=== PATIENT | female | born 1990 | race Caucasian/White ===

== ENCOUNTER 2018-08-14 10:12 | Emergency (ER) | payer OTHER ==
[2018-08-14] VITALS (9 sets, daily range): BP systolic 107–126; BP diastolic 45–63
[~2018-08-14] VITALS: Ht 162.6 cm; Wt 66.0 kg
[2018-08-14 11:33] LABS: MEAN CORPUSCULAR HEMOGLOBIN 18.2 pg (27.0-34.8); MEAN CORPUSCULAR VOLUME 63.2 fL (80-100); MEAN PLATELET VOLUME 10.1 fL (7.4-10.4); PLATELET COUNT 328 x10^3/uL (130-400); RED BLOOD COUNT 2.57 x10^6/uL (3.82-5.3); RED CELL DISTRIBUTION WIDTH 21.7 % (9.6-15.2)
[2018-08-14 11:34] LABS: MEAN CORPUSCULAR HGB CONC 28.7 g/dL (32.4-35.8)
[2018-08-14 11:45] LABS: BASOPHILS # (AUTO) 0.06 x10^3/uL (0-0.1); BASOPHILS % (AUTO) 2 % (0-1); EOSINOPHILS % (AUTO) 3 % (1-7); LYMPHOCYTES # (AUTO) 1.06 x10^3/uL (1-3.4); LYMPHOCYTES % (AUTO) 29 % (22-44); MD MORPH REVIEW ONLY; MONOCYTES # (AUTO) 0.32 x10^3/uL (0.2-0.8); MONOCYTES % (AUTO) 9 % (2-9); NEUTROPHILS # (AUTO) 2.17 x10^3/uL (1.8-6.8); NEUTROPHILS % (AUTO) 58 % (42-75)
[2018-08-14 11:54] LABS: ANISOCYTOSIS 2+; HYPOCHROMIA 3+; MICROCYTOSIS 2+
[2018-08-14 11:55] LABS: <PLATELET ESTIMATE> ADEQUATE; <PLT MORPHOLOGY> NORMAL PLT MORPH; OVALOCYTES 1+; POLYCHROMASIA 1+
[2018-08-14] MEDS ORDERED: MEGESTROL 40MG TABLET PO ONE (13:00)
== END 2018-08-14 16:21 | disposition home or self-care (01) ==
LOC: ED 11:25
DX: N93.8 Other specified abnormal uterine and vaginal bleeding (principal); D25.9 Leiomyoma of uterus, unspecified
CPT/HCPCS: 36415; 36430; 76830; 84703; 85025; 86850; 86900; 86920; 86923; 93005; 99285; P9016

== ENCOUNTER 2018-09-17 11:37 | Observation (INO) | payer OTHER ==
[~2018-09-17] VITALS: Ht 162.6 cm; Wt 65.7 kg
[2018-09-17] MEDS ORDERED: FENTANYL PF 250 MCG/5ML ONE ×3 (12:14→14:42)
[2018-09-17] MEDS ORDERED: MIDAZOLAM 1 MG/ML, 2ML ONE (12:14)
[2018-09-17] MEDS ORDERED: LACTATED RINGERS 1,000 ML IV SCH (12:30)
[2018-09-17 12:52] LABS: MEAN CORPUSCULAR HGB CONC 31.3 g/dL (32.4-35.8); MEAN CORPUSCULAR VOLUME 89.3 fL (80-100); MEAN PLATELET VOLUME 9.8 fL (7.4-10.4); PLATELET COUNT 355 x10^3/uL (130-400); RED BLOOD COUNT 3.51 x10^6/uL (3.82-5.3); RED CELL DISTRIBUTION WIDTH 27.3 % (9.6-15.2)
[2018-09-17] MEDS ORDERED: ACETAMINOPHEN 500 MG TABLET PO ONE (13:00)
[2018-09-17] MEDS ORDERED: GABAPENTIN 300 MG CAPSULE PO ONE (13:00)
[2018-09-17 13:01] VITALS: BP 115/71
[2018-09-17] MEDS ORDERED: BUPIVACAINE/PF-EPI 0.25% 1:200K ONE (13:09)
[2018-09-17] MEDS ORDERED: NEOMY/POLYMYXIN B GU IRR. 1 ML IRRIG ONE (13:09)
[2018-09-17] MEDS ORDERED: INDIGO CARMINE 0.8%, 5ML ONE (13:09)
[2018-09-17] MEDS ORDERED: MEGE625O PO (13:11)
[2018-09-17] MEDS ORDERED: DEXAMETHASONE 4 MG/ML, 1ML ONE (13:23)
[2018-09-17] MEDS ORDERED: CEFAZOLIN 1,000 MG ONE (13:23)
[2018-09-17] MEDS ORDERED: ONDANSETRON 2MG/ML, 2ML ONE (13:23)
[2018-09-17] MEDS ORDERED: PROPOFOL 10 MG/ML, 20ML ONE (13:23)
[2018-09-17] MEDS ORDERED: NEOSTIGMINE 1 MG/ML, 10ML ONE (13:23)
[2018-09-17] MEDS ORDERED: GLYCOPYRROLATE 0.2MG/1ML, 5ML ONE (13:23)
[2018-09-17 13:27] LABS: BASOPHILS # (AUTO) 0.04 x10^3/uL (0-0.1); BASOPHILS % (AUTO) 1 % (0-1); EOSINOPHILS # (AUTO) 0.08 x10^3/uL (0-0.4); EOSINOPHILS % (AUTO) 1 % (1-7); LYMPHOCYTES # (AUTO) 1.49 x10^3/uL (1-3.4); LYMPHOCYTES % (AUTO) 24 % (22-44); MD MORPH REVIEW ONLY; MONOCYTES # (AUTO) 0.39 x10^3/uL (0.2-0.8); MONOCYTES % (AUTO) 6 % (2-9); NEUTROPHILS # (AUTO) 4.15 x10^3/uL (1.8-6.8); NEUTROPHILS % (AUTO) 67 % (42-75)
[2018-09-17 13:28] LABS: <PLATELET ESTIMATE> ADEQUATE; LARGE PLATELETS 1+; POLYCHROMASIA 2+
[2018-09-17 13:29] LABS: ANISOCYTOSIS 2+; HYPOCHROMIA 1+; MICROCYTOSIS 1+
[2018-09-17] MEDS ORDERED: MORPHINE SULFATE 4 MG/ML, 1ML IVPush PRN (13:30)
[2018-09-17] MEDS ORDERED: PROMETHAZINE 25 MG/ML, 1ML IV PRN (13:30)
[2018-09-17] MEDS ORDERED: hydrALAzine 20 MG/ML, 1ML IV PRN (13:30)
[2018-09-17] MEDS ORDERED: PROMETHAZINE 25 MG/ML, 1ML IM PRN ×2 (13:30)
[2018-09-17] MEDS ORDERED: ONDANSETRON 2MG/ML, 2ML IV PRN (13:30)
[2018-09-17] MEDS ORDERED: MEPERIDINE/PF 25MG/0.5ML IVPush PRN (13:30)
[2018-09-17] MEDS ORDERED: LABETALOL 5MG/ML, 20ML IV PRN (13:30)
[2018-09-17] MEDS ORDERED: OXYcodone 5 MG/5 ML ORAL.SOL UDC PO PRN (13:30)
[2018-09-17] MEDS ORDERED: PROMETHAZINE 25 MG SUPP PR PRN (13:30)
[2018-09-17] MEDS ORDERED: PROMETHAZINE 12.5 MG SUPP PR PRN (13:30)
[2018-09-17] MEDS ORDERED: ONDANSETRON ODT 8 MG PO PRN (13:30)
[2018-09-17] MEDS ORDERED: SODIUM CHLORIDE 0.9% 100 ML ONE (13:41)
[2018-09-17] MEDS ORDERED: VASOPRESSIN 20 UNIT/ML, 1ML ONE (13:41)
[2018-09-17] MEDS ORDERED: METHYLENE BLUE 10 MG/ML 10ML ONE (14:53)
[2018-09-17] MEDS ORDERED: ROCURONIUM 10MG/ML,5ML ONE (15:35)
[2018-09-17] MEDS ORDERED: FENTANYL PF 100 MCG/2ML ONE ×3 (16:03→17:25)
[2018-09-17] MEDS: LACTATED RINGERS 1,000 ML IV SCH (17:21)
[2018-09-17] MEDS ORDERED: OXYcodone 5 MG/5 ML ORAL.SOL UDC ONE (17:25)
[2018-09-17] MEDS: FENTANYL PF 100 MCG/2ML IV PRN ×2 (17:26→17:33)
[2018-09-17] MEDS ORDERED: PROMETHAZINE 12.5 MG SUPP PR ONE (17:30)
[2018-09-17] MEDS ORDERED: ONDANSETRON 2MG/ML, 2ML IVPush PRN (17:30)
[2018-09-17] MEDS ORDERED: HYDROmorphone 2 MG/ML, 1ML ONE (17:33)
[2018-09-17] MEDS: HYDROmorphone 1 MG/ML, 1ML IV PRN ×2 (17:40→18:03)
[2018-09-17 19:30] VITALS: BP 113/68
[2018-09-17] MEDS ORDERED: PROMETHAZINE 25 MG SUPP PR ONE ×2 (21:29→21:30)
[2018-09-17] MEDS: IBUPROFEN 600 MG TABLET PO PRN (23:00)
[2018-09-17] MEDS: OXYcodone/APAP 5/325MG TABLET PO PRN (23:11)
[2018-09-18] VITALS (11 sets, daily range): BP systolic 100–113; BP diastolic 51–67
[2018-09-18] MEDS: IBUPROFEN 600 MG TABLET PO PRN ×2 (02:35→11:13)
[2018-09-18] MEDS: OXYcodone/APAP 5/325MG TABLET PO PRN ×5 (02:35→17:06)
[2018-09-18] MEDS: LACTATED RINGERS 1,000 ML IV SCH (02:45)
[2018-09-18 08:47] LABS: HEMOGRAM NOTE RECHECKED
[2018-09-18] MEDS ORDERED: OXYC1TAB7 PO (16:10)
[2018-09-18] MEDS ORDERED: HYDR-3240 PO (17:28)
== END 2018-09-18 17:58 | disposition home or self-care (01) ==
LOC: OUT 11:37 → 4NOR 18:30 → OUT 22:46
PROVIDERS: ADMIT Obstetrics & Gynecology Female Pelvic Medicine and Reconstructive Surgery; ATTEND Obstetrics & Gynecology Female Pelvic Medicine and Reconstructive Surgery
DX: D25.0 Submucous leiomyoma of uterus (principal); N93.8 Other specified abnormal uterine and vaginal bleeding; D64.9 Anemia, unspecified
CPT/HCPCS: 36415; 36430; 58558; 84703; 85014; 85018; 85025; 86850; 86900; 86923; 88305; 96374; C1760; G0378; J0690; J1100; J1170; J2250; J2405; J2704; J2710; J3010; J3490; J7120; P9016; Q9968